=== PATIENT | male | born 1990 | race African-American/Black ===

== ENCOUNTER 2016-10-01 23:46 | Emergency (ER) | payer OTHER ==
[~2016-10-01] VITALS: Ht 175.3 cm; Wt 79.4 kg
[2016-10-02] MEDS ORDERED: NKM
[2016-10-02] MEDS ORDERED: LORazepam 1mg tab ORAL ONE (00:15)
--- NOTE | 2016-10-02 00:44 | Emergency Room Report ---
History of Present Illness General Chief Complaint: General Complaint Source: Patient Present Illness HPI 26YOM walk-in with "feeling anxious" and "right nostril stuffed" since "someone put meth in my drink 5 days ago." Patient not clear on how he knows it was meth - states he used to take Adderrall as a child and "it feels similar". Denies chest pain, SOB, abd pain, feve/chills. States he hasnt been able to sleep for 5 nights, which he attributes to the meth. Denies doing other drugs, ETOH, other medical problems. Allergies: Coded Allergies: No Known Allergies (Unverified , 10/01/16) Patient History Past Medical History: none Past Surgical History: none Pertinent Family History: none Social History: Denies: alcohol use, drug use, smoking Immunizations: UTD Reviewed Nursing Documentation: PMH: Agreed, PSxH: Agreed Nursing Documentation-PMH Past Medical History: No Stated History Review of Systems All Other Systems: negative except mentioned in HPI Physical Exam Vital Signs Date Time Temp Pulse Resp B/P Pulse Ox O2 Delivery O2 Flow Rate FiO2 10/01/16 23:55 98.1 67 16 118/84 97 Room Air Sp02 EP Interpretation: reviewed, normal General Appearance: normal inspection, well appearing, no apparent distress, alert, GCS 15, non-toxic Head: normocephalic, atraumatic Eyes: bilateral eye EOMI, bilateral eye PERRL ENT: normal ENT inspection, hearing grossly normal, normal voice Neck: normal inspection, full range of motion, supple, no bony tend Respiratory: normal inspection, lungs clear, normal breath sounds, no respiratory distress, no retraction, no wheezing Cardiovascular #1: regular rate, rhythm, no edema Gastrointestinal: normal inspection, normal bowel sounds, non tender, soft, no guarding, no hernia Genitourinary: no CVA tenderness Musculoskeletal: normal inspection, back normal, normal range of motion, [place]' s Sign negative Neurologic: normal inspection, alert, oriented x3, responsive, track laying supervisor III-XII nml as tested, motor strength/tone normal, speech normal Psychiatric: normal inspection, judgement/insight normal, mood/affect normal Skin: normal inspection, normal color, no rash, warm/dry, palpation normal Medical Decision Making Diagnostic Impression: Primary Impression: Encounter for generalized patient complaints Additional Impression: Anxiety ER Course Anxiety from alleged drug poisoning - VSS. Afebrile. - Utox: + for meth - Was given ativan in ED and Rx PRN insomnia - Flonase for nasal congestion DC home with PMD followup Last Vital Signs Date Time Temp Pulse Resp B/P Pulse Ox O2 Delivery O2 Flow Rate FiO2 10/01/16 23:55 98.1 67 16 118/84 97 Room Air Status: improved Disposition: HOME, SELF-CARE Scripts Fluticasone Propionate (Flonase Allergy Relief) 9.9 Ml [place].susp 9.9 ML NS BID for nasal congestion for 3 Days, #1 UNIT Prov: JOSE F ANDRADE M.D. 10/02/16 Lorazepam* (ATIVAN*) 0.5 Mg Tablet 0.5 MG ORAL QHS for anxiety, insomnia for 5 Days, #5 TAB Prov: JOSE F ANDRADE M.D. 10/02/16 JOSE F ANDRADE M.D. Oct 02, 2016 00:44
[2016-10-02] MEDS ORDERED: FLONASE ALLERG9.9 ML NS (00:46)
[2016-10-02] MEDS ORDERED: ATIVAN0.5 MG ORAL (00:46)
[2016-10-02 01:24] VITALS: BP 111/65
[2016-10-02 01:36] VITALS: BP 111/65
== END 2016-10-02 01:37 | disposition home or self-care (01) ==
LOC: EMR 10-02 01:31
DX: F41.9 Anxiety disorder, unspecified (principal); Z04.8 Encounter for examination and observation for other specified reasons
CPT/HCPCS: 80300; 99284

== ENCOUNTER 2019-06-23 01:44 | Emergency (ER) | payer OTHER ==
[~2019-06-23] VITALS: Ht 170.2 cm; Wt 72.6 kg
[~2019-06-23 01:44] MED LIST: ATIVAN0.5 MG ORAL; FLONASE ALLERG9.9 ML NS; NKM
[2019-06-23 01:57] VITALS: BP 142/84
--- NOTE | 2019-06-23 01:58 | NUR ---
ED Nurse Note: pt [facility] having a bad experience with mushrooms that the pt took this evening around 10pm. Pt states that he believes the mushrooms were laced with another substance, possibly methamphetamines. Pt states that he is in no distress but he wanted to be taken to the ED for monitoring for peace of mind. VSS, no ss of distress noted; awaiting ERMD at bedside
--- NOTE | 2019-06-23 02:00 | NUR ---
ED Nurse Note: ERMD at bedside
--- NOTE | 2019-06-23 02:14 | Emergency Room Report ---
History of Present Illness General Chief Complaint: Substance Abuse Source: Patient Present Illness [facility] This a 29-year-old with no past medical history. He presents with chief complaint of "bad trip." Patient was taking mushroom and possibly methamphetamine. He said he had a bad trip. He said he literally went to "another plane". He said that he had to pray to God to let him come back. He said he was seeing things and hearing things. He said he was sweating. He said this occur several hours ago. He says actually feeling better now. He called 911 because he want to be monitored to make sure nothing bad can happen. Not suicidal homicidal. Never had this problem before. No chest pain. No palpitation. Allergies: Coded Allergies: No Known Allergies (Unverified , 10/01/16) Patient History Past Medical History: see triage record, old chart reviewed Past Surgical History: none Pertinent Family History: none Social History: Reports: drug use Immunizations: other Reviewed Nursing Documentation: PMH: Agreed; PSxH: Agreed Nursing Documentation-PMH Past Medical History: No Stated History Review of Systems Eye: Denies: eye pain, blurred vision ENT: Denies: ear pain, nose congestion, throat swelling Respiratory: Denies: cough, shortness of breath Cardiovascular: Denies: chest pain, palpitations Gastrointestinal: Denies: abdominal pain, diarrhea, nausea, vomiting Musculoskeletal: Denies: back pain, joint pain Skin: Denies: rash Psychiatric: Reports: hallucinations Neurological: Denies: headache, numbness Endocrine: Denies: increased thirst, increased urine Hematologic/Lymphatic: Denies: easy bruising All Other Systems: negative except mentioned in HPI Physical Exam Vital Signs Date Time Temp Pulse Resp B/P (MAP) Pulse Ox O2 Delivery O2 Flow Rate FiO2 06/23/19 01:48 98.2 80 18 142/84 (103) 99 Room Air Vitals normal Sp02 EP Interpretation: reviewed, normal General Appearance: well appearing, no apparent distress, alert Head: normocephalic, atraumatic Eyes: bilateral eye PERRL, bilateral eye EOMI ENT: hearing grossly normal, normal pharynx Neck: full range of motion, supple, no meningismus Respiratory: chest non-tender, lungs clear, normal breath sounds Cardiovascular #1: regular rate, rhythm, no murmur Gastrointestinal: normal bowel sounds, non tender, no mass, no organomegaly, no bruit, non-distended Musculoskeletal: back normal, normal range of motion, gait/station normal Psychiatric: mood/affect normal Medical Decision Making Diagnostic Impression: Primary Impression: Hallucinatory state induced by drugs ER Course This patient presents with acute psychosis secondary to drugs. He is back to baseline now. Not tachycardic or hypertensive anymore. Will observe patient and reassure patient. Will discharge home. No criteria for 5150. Last Vital Signs Date Time Temp Pulse Resp B/P (MAP) Pulse Ox O2 Delivery O2 Flow Rate FiO2 06/23/19 01:48 98.2 80 18 142/84 (103) 99 Room Air Status: improved Disposition: HOME, SELF-CARE Condition: Stable Referrals: NON PHYSICIAN (PCP) Patient Instructions: Substance Use Disorder Additional Instructions: Follow-up with your doctor in 7 days. Abstain from drugs and alcohol. Return if worse. Herb Plunkett MD Jun 23, 2019 02:14
[2019-06-23] MEDS ORDERED: Neosporin Oint Ud Pkt TOPIC ONE (02:15)
--- NOTE | 2019-06-23 03:00 | NUR ---
ED Nurse Note: pt stated he was feeling nauseous; ERMD notified. Pt recieved medication for nausea, tolerated well. no adverse reactions noted. VSS, no ss of distress noted.
[2019-06-23 03:05] VITALS: BP 142/84
--- NOTE | 2019-06-23 03:05 | NUR ---
ER DISCHARGE NOTE: Patient is cleared to be discharged home per ERMD, pt is aox4, on room air, with stable vital signs. pt was given dc and prescription instructions, pt was able to verbalize understanding, pt id band aremoved. pt is able to ambulate with steady gait. pt took all belongings.
== END 2019-06-23 03:05 | disposition home or self-care (01) ==
LOC: EDUNIT# 01:44 → EDBD 01:44 → EMR 02:07
DX: F16.951 Hallucinogen use, unspecified with hallucinogen-induced psychotic disorder with hallucinations (principal)
CPT/HCPCS: 99282